=== PATIENT | male | born 1985 | race Caucasian/White ===

== ENCOUNTER 2018-11-15 01:03 | Emergency (ER) | payer OTHER ==
--- NOTE | 2018-11-15 01:10 | C.PDOC ---
- HPI Time Seen by Provider: 11/15/18 01:09 Chief Complaint (Nursing): Trauma Disposition Counseled Patient/Family Regarding: Studies Performed, Diagnosis - Disposition Disposition Time: 01:09
[2018-11-15] MEDS ORDERED: Ammonia 2% Inhalant ONE (01:37)
[2018-11-15 01:45] LABS: BASO % 0.6 % (0.0-2.0); EOS # 0.4 K/uL (0.0-0.7); EOS % 6.1 % (0.0-4.0); HEMOGLOBIN 14.8 g/dL (12.0-18.0); LYMPH # 3.3 K/uL (1.0-4.3); MEAN CORPUSCULAR HEMOGLOBIN 30.1 pg (27.0-31.0); MEAN CORPUSCULAR HGB CONC 34.7 g/dL (33.0-37.0); MEAN PLATELET VOLUME 7.9 fL (7.2-11.7); MONO # 0.6 K/uL (0.0-0.8); MONO % 8.7 % (0.0-10.0); NEUT # 2.5 K/uL (1.8-7.0); NEUT % 36.6 % (50.0-75.0); RBC 4.92 Mil/uL (4.40-5.90); RED CELL DISTRIBUTION WIDTH 12.7 % (11.5-14.5); WHITE BLOOD COUNT 6.9 K/uL (4.8-10.8)
[2018-11-15 01:52] LABS: ALB/GLOB RATIO 1.5 (1.0-2.1); ALBUMIN 4.6 g/dL (3.5-5.0); ALT/SGPT 94 U/L (21-72); AST/SGOT 75 U/L (17-59); BLOOD UREA NITROGEN 13 mg/dL (9-20); CALCIUM 9.7 mg/dl (8.6-10.4); GFR NON-AFRICAN AMERICAN > 60
[2018-11-15 02:07] LABS: BARBITURATES, UR NEGATIVE (NEGATIVE); BENZODIAZEPINES, UR NEGATIVE (NEGATIVE); OPIATES, UR NEGATIVE (NEGATIVE); PHENCYCLIDINE, UR NEGATIVE (NEGATIVE)
--- NOTE | 2018-11-15 06:30 | C.PDOC ---
History Of Present Illness 44 year old male is brought to the ED by EMS for evaluation. As per EMS patient was picked up in front of [employer], he was found without shirt on and unable to answer any questions. Patient unable to answer any questions, responds to sternal rub. Time Seen by Provider: 11/15/18 01:09 Chief Complaint (Nursing): Altered Mental Status History Per: EMS History/Exam Limitations: intoxication Onset/Duration Of Symptoms: Hrs Current Symptoms Are (Timing): Still Present Modifying Factor(s): Alcohol Associated Symptoms: denies: Depression, Suicidal Thoughts, Suicidal Plan Recent travel outside of the [place]: No Additional History Per: EMS Past Medical History Reviewed: Historical Data, Nursing Documentation, Vital Signs Vital Signs: Last Vital Signs Temp 97 F L 11/15/18 06:04 Pulse 78 11/15/18 06:04 Resp 18 11/15/18 06:04 BP 115/52 L 11/15/18 06:04 Pulse Ox 97 11/15/18 06:04 - Medical History PMH: No Chronic Diseases Surgical History: No Surg Hx Family History: States: Unknown Family Hx - Social History Hx Alcohol Use: No (UNKOWN) Hx Substance Use: No (UNKNOWN) Review Of Systems Review Of Systems: ROS cannot be obtained secondary to pt's inabilty to answer questions. (patient unable to answer questions) Physical Exam - Physical Exam Appears: Other (No obvious signs of trauma) Skin: Normal Color, Warm, No Rash Head: Atraumatic, Normacephalic Chest: Symmetrical, Other (no signs of trauma) Respiratory: No Accessory Muscle Use, Other (normal inspiratory effort) Gastrointestinal/Abdominal: Soft, No Distention Extremity: Normal ROM (throughout) Neurological/Psych: Other (arousable to sternal rub) ED Course And Treatment - Laboratory Results Result Diagrams: 11/15/18 01:37 11/15/18 01:37 Lab Results: Total Bilirubin 0.3 mg/dL (0.2-1.3) 11/15/18 01:37 AST 75 U/L (17-59) H 11/15/18 01:37 ALT 94 U/L (21-72) H 11/15/18 01:37 Alkaline Phosphatase 115 U/L (38-126) 11/15/18 01:37 Total Protein 7.7 g/dL (6.3-8.3) 11/15/18 01:37 Albumin 4.6 g/dL (3.5-5.0) 11/15/18 01:37 Globulin 3.1 gm/dL (2.2-3.9) 11/15/18 01:37 Albumin/Globulin Ratio 1.5 (1.0-2.1) 11/15/18 01:37 O2 Sat by Pulse Oximetry: 97 (ON RA) Pulse Ox Interpretation: Normal - CT Scan/US CT head Other Rad Studies (CT/US): Read By Radiologist, Radiology Report Reviewed CT/US Interpretation: CT SCAN OF THE BRAIN WITHOUT IV CONTRAST. CLINICAL INDICATION: Respond. TECHNIQUE: Axial and reformatted sagittal and coronal images of the brain obtained without IV contrast administration. Normal size of the ventricles and extra-axial spaces for the patient's age. Normal white matter tracts of the supratentorial brain. Normal basal ganglia and thalami. Normal brainstem. Normal cerebellum. There is no demonstrated extra-axial, intraparenchymal, or intraventricular hemorrhage. There are no findings of an acute ischemic infarction. Normal calvarium. There is no demonstrated fracture. Normal soft tissue structures. Moderate chronic mucosal inflammatory changes of the visualized paranasal sinuses. Air-fluid level in the right maxillary and right frontal sinuses. IMPRESSION: Normal unenhanced CT scan of the brain. Sinusitis. Acute on top of chronic. . Electronically signed on Nov 15, 2018 4:05:21 AM EDT by: Mp Tavarez M.D., Certified by ABR, MSK, Neuroradiology Medical Decision Making Medical Decision Making: Plan: * CT head * Labs Reevaluation : Throughout the night patient became more responsive, patient now responding to verbal stimuli however he still not speaking. Patient's alcohol level was 241, urine drug screen negative. 06:18- RN reports someone had called the ED stating their brother was dropped off in the ED without a shirt. Disposition - Disposition Disposition Time: 07:00 Condition: STABLE Forms: [facility] (Latvian) - Clinical Impression Clinical Impression: Alcohol intoxication - Scribe Statement The provider has reviewed the documentation as recorded by the Scribe Johan Godfrey All medical record entries made by the Scribe were at my direction and personally dictated by me. I have reviewed the chart and agree that the record accurately reflects my personal performance of the history, physical exam, medical decision making, and the department course for this patient. I have also personally directed, reviewed, and agree with the discharge instructions and disposition. Physician Patient Turnover Patient Signed Over To: Rosie Courtney (pending sobriety)
--- NOTE | 2018-11-15 08:31 | CT ---
Date of service: 11/15/2018 PROCEDURE: CT HEAD WITHOUT CONTRAST. HISTORY: Altered mental status COMPARISON: None available. TECHNIQUE: Axial computed tomography images were obtained through the head/brain without intravenous contrast. Radiation dose: Total exam DLP = 1269.37 mGy-cm. This CT exam was performed using one or more of the following dose reduction techniques: Automated exposure control, adjustment of the mA and/or kV according to patient size, and/or use of iterative reconstruction technique. FINDINGS: HEMORRHAGE: No intracranial hemorrhage. BRAIN: No mass effect or edema. Scattered focal lucencies in the subcortical and periventricular white matter suggestive for chronic microvascular ischemic change. Punctate hypodensity in the left basal ganglia which may represent a small lacunar infarct.. VENTRICLES: Unremarkable. No hydrocephalus. CALVARIUM: Unremarkable. PARANASAL SINUSES: Moderate to severe mucosal thickening and opacification of the bilateral maxillary sinuses, sphenoid sinus, ethmoid air cells, and frontal sinus. MASTOID AIR CELLS: Unremarkable as visualized. No inflammatory changes. OTHER FINDINGS: None. IMPRESSION: Limited study as the patient's head is rotated in the scanner. No acute intracranial abnormality. Chronic microvascular ischemic change. Severe sinusitis. Lucency through the left nasal bone may represent a small nondisplaced fracture. Clinical correlation. If symptoms persists, consider correlation with MRI. A preliminary report was generated at 4:05 a.m. on 11/15/[address] Mp Tavarez from [facility]. This case was placed in the PA review folder.
[2018-11-15 11:42] VITALS: RESP 18
[2018-11-15 12:49] VITALS: BP 114/71; PULSE 70; TEMP 98.1; O2SAT 97
== END 2018-11-15 13:22 | disposition home or self-care (01) ==
LOC: C.ER 01:03 → EDBD 01:03 → C.ER 13:22
DX: F10.129 Alcohol abuse with intoxication, unspecified (principal); Y90.8 Blood alcohol level of 240 mg/100 ml or more; R51 Headache